=== PATIENT | female | born 1980 | race African-American/Black ===

== ENCOUNTER 2018-10-04 18:26 | Emergency (ER) | payer OTHER ==
[~2018-10-04] VITALS: Ht 154.9 cm; Wt 86.2 kg
--- NOTE | ~2018-10-04 | EKG ---
[address] [address] ELECTROCARDIOGRAM REPORT Name: KADE ALLEN [id number] Admission: 10/04/18 Attend Phys: Discharge: 10/04/18 Date of : 84 Report #: [id number] THIS REPORT FOR: //name// [facility] ED Test Date: 2018-10-04 Test Time: 18:40:19 Pat Name: KADE ALLEN Department: Room: Gender: F Telephony Engineer: : [id number] Requested By: Michelle Brannon Order Number: [id number] MD: Brayan Troncoso Measurements Intervals [place] Rate: 103 P: 56 MD: 117 QRS: 5 QRSD: 78 T: -2 QT: 330 QTc: 432 Interpretive Statements Sinus tachycardia Nonspecific T-wave abnormalities No previous ECG available for comparison Electronically Signed On 10-05-2018 10:22:06 [employer] by Brayan Troncoso [email or web address] <ELECTRONICALLY SIGNED> By: Brayan Troncoso MD 10/05/18 1022 1840 1840 Brayan Troncoso MD /EPI
[~2018-10-04 18:26] MED LIST: FLEXERIL PO; NORCO 5-325 TA1 EACH PO; OCELLA TABLET1 EACH PO; SYNTHROID137 MCG PO; XANAX 0.25 MG0.25 MG; ZOFRAN ODT4 MG PO
[2018-10-04] MEDS ORDERED: ALDACTONE100 MG PO (18:34)
[2018-10-04 18:41] LABS: URINE BILIRUBIN NEGATIVE (Negative); URINE BLOOD NEGATIVE (Negative); URINE CLARITY CLEAR; URINE COLOR YELLOW; URINE GLUCOSE-RANDOM* NEGATIVE (Negative); URINE KETONES NEGATIVE (Negative); URINE LEUKOCYTES-REFLEX NEGATIVE (Negative); URINE NITRITE-REFLEX NEGATIVE (Negative); URINE PROTEIN (DIPSTICK) NEGATIVE (Negative); URINE UROBILINOGEN 0.2 E.U./dl (0.2-1.0)
[2018-10-04 18:52] LABS: ABSOLUTE NEUTROPHILS 7.2 thou/uL (1.4-8.2); BASOPHILS 0.7 % (0.0-2.0); EOSINOPHILS 1.2 % (0.0-3.0); HEMATOCRIT 41.3 % (37.0-47.0); HEMOGLOBIN 14.3 gm/dL (12.0-15.0); LYMPHOCYTES 22.1 % (24.0-44.0); MCH 30.8 pg (26.0-34.0); MCHC 34.6 g/dL (28.0-37.0); MCV 89.1 fL (80.0-100.0); MONOCYTES 7.2 % (1.0-8.0); PLATELET COUNT 390 thou/uL (150-400); POLYS 68.8 % (36.0-66.0); RBC 4.63 mil/uL (4.20-5.00); RDW 13.3 % (10.5-14.5); WBC 10.5 thou/uL (4.0-11.0)
[2018-10-04 19:00] LABS: CALCIUM 8.9 mg/dL (8.5-10.1); CREATININE 0.9 mg/dL (0.6-1.0); POTASSIUM 3.6 mmol/L (3.5-5.1)
[2018-10-04 19:06] LABS: ALBUMIN 3.4 g/dL (3.4-5.0); TOTAL BILIRUBIN 0.2 mg/dL (<0.1-1.0); TOTAL PROTEIN 7.6 g/dL (6.4-8.2)
[2018-10-04] MEDS ORDERED: ANTIVERT25 MG PO (20:16)
[2018-10-04] MEDS ORDERED: CEFDINIR300 MG PO (20:18)
[2018-10-04 21:12] VITALS: BP 108/62
== END 2018-10-04 21:13 | disposition home or self-care (01) ==
LOC: ER 18:26
PROVIDERS: Nurse Practitioner Family
DX: R42 Dizziness and giddiness (principal); J32.9 Chronic sinusitis, unspecified; E28.2 Polycystic ovarian syndrome; Z88.1 Allergy status to other antibiotic agents; Z88.8 Allergy status to other drugs, medicaments and biological substances; Z88.2 Allergy status to sulfonamides; Z98.890 Other specified postprocedural states; Z90.89 Acquired absence of other organs

== ENCOUNTER 2020-08-08 19:40 | Emergency (ER) | payer OTHER ==
[~2020-08-08] VITALS: Ht 157.5 cm; Wt 86.6 kg
[~2020-08-08 19:40] MED LIST changes: +ALDACTONE100 MG PO; +ANTIVERT25 MG PO; +CEFDINIR300 MG PO; +SYNTHROID100 MC1 PO; -SYNTHROID137 MCG PO
[2020-08-08] MEDS ORDERED: ADIPEX-P37.5 MG PO (19:56)
[2020-08-08] MEDS ORDERED: TOPAMAX100 MG PO (19:57)
[2020-08-08 21:26] LABS: URINE BILIRUBIN NEGATIVE (Negative); URINE BLOOD 1+ (Negative); URINE CLARITY CLEAR; URINE COLOR YELLOW; URINE GLUCOSE-RANDOM* NEGATIVE (Negative); URINE KETONES NEGATIVE (Negative); URINE NITRITE-REFLEX NEGATIVE (Negative); URINE PROTEIN (DIPSTICK) NEGATIVE (Negative); URINE UROBILINOGEN 0.2 E.U./dl (0.2-1.0)
[2020-08-08 21:48] LABS: URINE LEUKOCYTES-REFLEX 1+ (Negative)
[2020-08-08 21:51] LABS: CASTS None Seen /LPF (None Seen); MUCUS 0-3 Light strn/LPF (None Seen); SQUAMOUS 4-10 Moderate /LPF (0-3)
[2020-08-08 21:52] LABS: BACTERIA-REFLEX >30 Many /HPF (None Seen); CRYSTALS None Seen /LPF (None Seen); URINE RBC 3-10 Few /HPF (0-2)
[2020-08-08] MEDS ORDERED: KEFLEX500 M1 PO (21:57)
[2020-08-08 22:06] VITALS: BP 124/91
== END 2020-08-08 22:07 | disposition home or self-care (01) ==
LOC: ER 19:40
PROVIDERS: Emergency Medicine
DX: S30.814A Abrasion of vagina and vulva, initial encounter (principal); Z90.710 Acquired absence of both cervix and uterus; Z98.890 Other specified postprocedural states; Z79.899 Other long term (current) drug therapy; Z88.1 Allergy status to other antibiotic agents; Z88.2 Allergy status to sulfonamides; X58.XXXA Exposure to other specified factors, initial encounter; Y93.89 Activity, other specified; Y92.89 Other specified places as the place of occurrence of the external cause; Y99.8 Other external cause status